=== PATIENT | male | born 1960 | race Caucasian/White ===

== ENCOUNTER 2018-07-22 22:09 | Emergency (ER) | payer MEDICARE, OTHER ==
[~2018-07-22] VITALS: Ht 180.3 cm; Wt 98.3 kg
--- NOTE | 2018-07-22 22:30 | NUR ---
PRECEPTOR NOTE: PT PRESENTS TO ED STATING HE CLIPPED SKIN ON RIGHT THIRD TOE ACCIDENTALLY WHILE CLIPPING TOES SEVERAL DAYS AGO AND HAS HAD PAIN AND SWELLING TO FOOT SINCE THAT TIME. LESION NOTED TO RIGHT 3RD TOE WITH SURROUNDING SKIN SLOUGHING NOTED. CMS INTACT TO BILATERAL LE WITH 3+ DORSALIS PEDIS PULSE BILATERALLY. EDEMA AND ERYTHEMA TO RIGHT LOWER LEG AND FOOT. BP AND SPO2 MONITORS IN PLACE.
[2018-07-22] MEDS ORDERED: INSU100V8 SQ (22:35)
[2018-07-22] MEDS ORDERED: GABA600T7 PO (22:37)
[2018-07-22] MEDS ORDERED: GEMF600T8 PO (22:37)
[2018-07-22] MEDS ORDERED: TRAZ150T62 PO (22:38)
[2018-07-22] MEDS ORDERED: ESCI20TA PO (22:38)
[2018-07-22] MEDS ORDERED: CYCL-259 PO (22:39)
[2018-07-22] MEDS ORDERED: CARV6.252 PO (22:40)
[2018-07-22] MEDS ORDERED: LISI-170 PO (22:40)
[2018-07-22] MEDS ORDERED: LOVA20TA2 PO (22:40)
[2018-07-22] MEDS ORDERED: HYDR-3307 PO (22:41)
[2018-07-22] MEDS ORDERED: [UNRECOGNIZED DRUG - OTHER] (22:42)
--- NOTE | 2018-07-22 23:00 | NUR ---
first contact with pt. pt c/o left leg swelling/pain/redness x a few days. right leg swelling x a few days as well. pt states that left middle toe pain and laceration as well. pt has hx of dm/gout. pt aox4. resps even and unlabored. edmd at bedside to assess at this time. bp/spo2 monitors in place. call light within reach.
[2018-07-22] MEDS ORDERED: ONDANSETRON 2MG/ML, 2ML ONE (23:11)
[2018-07-22] MEDS ORDERED: MORPHINE SULFATE 4 MG/ML, 1ML ONE (23:11)
[2018-07-22 23:22] LABS: BASOPHILS # (AUTO) 0.02 x10^3/uL (0-0.1); BASOPHILS % (AUTO) 0 % (0-1); EOSINOPHILS # (AUTO) 0.07 x10^3/uL (0-0.4); EOSINOPHILS % (AUTO) 1 % (1-7); LYMPHOCYTES % (AUTO) 19 % (22-44); MD NO; MEAN CORPUSCULAR HEMOGLOBIN 29.4 pg (27.5-34.5); MEAN CORPUSCULAR HGB CONC 34.1 g/dL (33.2-36.2); MEAN CORPUSCULAR VOLUME 86.1 fL (81-97); MEAN PLATELET VOLUME 7.6 fL (7.4-10.4); MONOCYTES % (AUTO) 10 % (2-9); NEUTROPHILS # (AUTO) 4.18 x10^3/uL (1.8-6.8); NEUTROPHILS % (AUTO) 70 % (42-75); PLATELET COUNT 217 x10^3/uL (130-400); RED BLOOD COUNT 4.67 x10^6/uL (4.38-5.82); RED CELL DISTRIBUTION WIDTH 13.6 % (9.4-14.8)
[2018-07-22 23:27] LABS: ALANINE AMINOTRANSFERASE 19 U/L (12-78); ALBUMIN 3.5 g/dL (3.4-5.0); ANION GAP 5 mmol/L (5-15); CALCIUM 8.6 mg/dL (8.5-10.1); CHLORIDE 111 mmol/L (98-107); CREATININE 0.94 mg/dL (0.7-1.3)
[2018-07-22 23:29] LABS: ALKALINE PHOSPHATASE 98 U/L (45-117); BILIRUBIN,TOTAL 0.3 mg/dL (0.2-1.0); TOTAL PROTEIN 7.4 g/dL (6.4-8.2)
[2018-07-22] MEDS ORDERED: ONDANSETRON 2MG/ML, 2ML IVPush ONE (23:30)
[2018-07-22] MEDS ORDERED: MORPHINE SULFATE 4 MG/ML, 1ML IVPush PRN (23:30)
--- NOTE | 2018-07-22 23:35 | NUR ---
PT MEDICATED PER EMAR. PT TOLERATED WELL. PT AOX4. RESPS EVEN AND UNLABORED.
--- NOTE | 2018-07-22 23:55 | NUR ---
PT REPORTS PAIN LEVEL DOWN FROM 10/10 TO 3/10 AT THIS TIME. PT A&O, RESPS EVEN AND UNLABORED. PT INFORMED BY OF PLAN TO ADMIT, PT VERBALIZES UNDERSTANDING. REQUESTING AMA. AWARE.
--- NOTE | 2018-07-23 00:04 | NUR ---
Bedside SBAR report received from RN, Arianna, and RNMally. Pt resting on gurney, remains on monitors, VSS.
--- NOTE | 2018-07-23 00:05 | NUR ---
Dr. Carolina and Ally SAMANIEGO at bedside to discuss ED findings and POC.
--- NOTE | 2018-07-23 00:05 | NUR ---
REPORT TO ROSEMARIE REAL.
[2018-07-23] MEDS ORDERED: CEFTRIAXONE PMX 1GM/50ML 50 ML ONE (00:16)
--- NOTE | 2018-07-23 00:25 | NUR ---
IV ABX started, pt states that he will AMA from ER this visit but states that he will "come back in a couple of days."
[2018-07-23] MEDS ORDERED: CEFTRIAXONE PMX 1GM/50ML 50 ML IV ONE (00:30)
[2018-07-23 00:34] VITALS: BP 157/84
--- NOTE | 2018-07-23 01:01 | NUR ---
Patient/Caregiver given discharge instructions and they have confirmed that they understand the instructions. Patient ambulatory with steady gait.
== END 2018-07-23 01:03 | disposition left against medical advice (07) ==
LOC: ED 23:35
DX: L03.115 Cellulitis of right lower limb (principal); M86.171 Other acute osteomyelitis, right ankle and foot; I10 Essential (primary) hypertension; E11.9 Type 2 diabetes mellitus without complications; F41.1 Generalized anxiety disorder; F32.9 Major depressive disorder, single episode, unspecified
CPT/HCPCS: 36415; 73660; 80053; 80307; 83605; 84145; 85025; 87040; 93971; 96365; 96375; 99284; J0696; J2405

== ENCOUNTER 2018-08-05 23:19 | Inpatient (IN) | payer MEDICARE, OTHER ==
[~2018-08-05] VITALS: Ht 180.3 cm; Wt 95.0 kg
[~2018-08-05 23:19] MED LIST: CARV6.252 PO; CYCL-259 PO; ESCI20TA PO; GABA600T7 PO; GEMF600T8 PO; HYDR-3307 PO; INSU100V8 SQ; LISI-170 PO; LOVA20TA2 PO; TRAZ150T62 PO; [UNRECOGNIZED DRUG - OTHER]
[2018-08-05] MEDS ORDERED: MORPHINE SULFATE 4 MG/ML, 1ML ONE (23:58)
[2018-08-06] MEDS ORDERED: SODIUM CHLORIDE FLUSH 10ML SYR IVF ONE
--- NOTE | 2018-08-06 00:09 | NUR ---
Pt reports increasing infection to right middle toes, obvious swelling/reddness to lower extremity. Hx diabetes, states decreased sensation to lower extremity.
--- NOTE | 2018-08-06 00:13 | NUR ---
Distal CSM's intact. Strong pedal pulse noted on assessment to affected extremity
--- NOTE | 2018-08-06 00:37 | NUR ---
Cultures drawn x2, pt reports decreased pain, "just feels like a little sharp shooting pain once in a while"
[2018-08-06 00:39] LABS: HCT (SEDRATE) 35.3 % (39.2-51.8)
[2018-08-06 00:39] LABS: BASOPHILS # (AUTO) 0.02 x10^3/uL (0-0.1); BASOPHILS % (AUTO) 0 % (0-1); EOSINOPHILS # (AUTO) 0.05 x10^3/uL (0-0.4); EOSINOPHILS % (AUTO) 1 % (1-7); LYMPHOCYTES # (AUTO) 0.79 x10^3/uL (1-3.4); LYMPHOCYTES % (AUTO) 9 % (22-44); MD NO; MEAN CORPUSCULAR HEMOGLOBIN 28.3 pg (27.5-34.5); MEAN CORPUSCULAR VOLUME 85.9 fL (81-97); MEAN PLATELET VOLUME 7.6 fL (7.4-10.4); MONOCYTES # (AUTO) 0.63 x10^3/uL (0.2-0.8); MONOCYTES % (AUTO) 7 % (2-9); NEUTROPHILS # (AUTO) 7.32 x10^3/uL (1.8-6.8); NEUTROPHILS % (AUTO) 83 % (42-75); PLATELET COUNT 331 x10^3/uL (130-400); RED BLOOD COUNT 4.35 x10^6/uL (4.38-5.82); RED CELL DISTRIBUTION WIDTH 13.6 % (9.4-14.8)
[2018-08-06 00:42] LABS: ALANINE AMINOTRANSFERASE 26 U/L (12-78); ANION GAP 7 mmol/L (5-15); CALCIUM 8.4 mg/dL (8.5-10.1); CHLORIDE 108 mmol/L (98-107); CREATININE 0.85 mg/dL (0.7-1.3)
[2018-08-06 00:48] LABS: ALKALINE PHOSPHATASE 101 U/L (45-117); BILIRUBIN,TOTAL 0.3 mg/dL (0.2-1.0); TOTAL PROTEIN 7.2 g/dL (6.4-8.2)
--- NOTE | 2018-08-06 01:32 | NUR ---
PT HAS [facility] [employer], [facility] AT [facility] DECLINES TRANSFER.
--- NOTE | 2018-08-06 01:52 | NUR ---
Report to socorro [place], pt ambulated to restroom without assistance, Pt ready for transport, will consult MD regarding ABX administration
--- NOTE | 2018-08-06 01:55 | NUR ---
Per ER , going to get MRI before abx administration
--- NOTE | 2018-08-06 01:55 | NUR ---
Pt no longer has room assignment. Will continue to hold in ED
--- NOTE | 2018-08-06 02:06 | NUR ---
Report to thomas [place]. Pt ready for transport.
[2018-08-06 02:48] VITALS: BP 143/83
[2018-08-06] MEDS ORDERED: GEMFIBROZIL 600 MG TABLET PO SCH (05:00)
[2018-08-06] MEDS ORDERED: hydrALAzine 20 MG/ML, 1ML IVPush PRN (05:00)
[2018-08-06] MEDS ORDERED: INSULIN GLARGINE 100 UNITS/ML, PEN SQ-INSULIN SCH (05:00)
[2018-08-06] MEDS ORDERED: KETOROLAC 30 MG/1 ML IV PRN (05:00)
[2018-08-06] MEDS ORDERED: ONDANSETRON 2MG/ML, 2ML IVPush PRN (05:00)
[2018-08-06] MEDS ORDERED: OXYcodone IR 5MG TABLET PO PRN (05:00)
[2018-08-06] MEDS ORDERED: ACETAMINOPHEN 500 MG TABLET PO PRN (05:00)
[2018-08-06] MEDS: SODIUM CHLORIDE 0.9% 1,000 ML IV SCH ×2 (05:03→15:25)
[2018-08-06] MEDS: PIPERACILLIN/TAZO/PMX 3.375GM 50 ML IV SCH ×4 (05:13→23:27)
[2018-08-06] MEDS: GABAPENTIN 300 MG CAPSULE PO SCH ×4 (06:47→20:11)
[2018-08-06] MEDS ORDERED: TRAZODONE 150MG TABLET PO SCH (09:00)
[2018-08-06] MEDS ORDERED: GADOBUTROL 10 MMOL/10 ML PFS ONE (09:03)
[2018-08-06 09:39] VITALS: BP 96/57
[2018-08-06] MEDS: LISINOPRIL 20 MG TABLET PO SCH (09:42)
[2018-08-06] MEDS: CARVEDILOL 6.25 MG TABLET PO SCH ×2 (09:42→20:10)
[2018-08-06] MEDS: CYCLOBENZAPRINE 10 MG TABLET PO SCH ×3 (09:42→20:10)
[2018-08-06] MEDS: ENOXAPARIN 40 MG/0.4 ML SQ SCH (09:42)
[2018-08-06] MEDS: INSULIN LISPRO 100 UNITS/ML, PEN SQ-INSULIN SCH ×2 (09:42→12:19)
[2018-08-06] MEDS ORDERED: INDO50CA5 PO (09:45)
[2018-08-06] MEDS: TEMPLATE NON-FORMULARY MED. (Escitalopram Oxalate** 20 MG) HOMEMEDPO SCH (11:02)
[2018-08-06 14:15] VITALS: BP 127/71
[2018-08-06] MEDS: D5%-0.9% NACL 1,000 ML IV SCH (15:33)
[2018-08-06 19:04] VITALS: BP 120/61
[2018-08-06] MEDS ORDERED: MIDAZOLAM 1 MG/ML, 2ML ONE (19:41)
[2018-08-06] MEDS ORDERED: FENTANYL PF 250 MCG/5ML ONE (19:41)
[2018-08-06] MEDS ORDERED: PROPOFOL 10 MG/ML, 20ML ONE (19:43)
[2018-08-06] MEDS ORDERED: PROMETHAZINE 12.5 MG SUPP PR PRN (20:00)
[2018-08-06] MEDS ORDERED: HYDROmorphone 2 MG/ML, 1ML IVPush PRN (20:00)
[2018-08-06] MEDS ORDERED: hydrALAzine 20 MG/ML, 1ML IV PRN (20:00)
[2018-08-06] MEDS ORDERED: MEPERIDINE/PF 25MG/0.5ML IVPush PRN (20:00)
[2018-08-06] MEDS ORDERED: OXYcodone 5 MG/5 ML ORAL.SOL UDC PO PRN (20:00)
[2018-08-06] MEDS ORDERED: LABETALOL 5MG/ML, 20ML IV PRN (20:00)
[2018-08-06] MEDS ORDERED: PROMETHAZINE 25 MG/ML, 1ML IV PRN (20:00)
[2018-08-06] MEDS ORDERED: ONDANSETRON ODT 8 MG PO PRN (20:00)
[2018-08-06] MEDS ORDERED: PROMETHAZINE 25 MG/ML, 1ML IM PRN ×2 (20:00)
[2018-08-06] MEDS ORDERED: FENTANYL PF 100 MCG/2ML IV PRN (20:00)
[2018-08-06] MEDS ORDERED: PROMETHAZINE 25 MG SUPP PR PRN (20:00)
[2018-08-06] MEDS ORDERED: ONDANSETRON 2MG/ML, 2ML IV PRN (20:00)
[2018-08-06] MEDS ORDERED: MORPHINE SULFATE 4 MG/ML, 1ML IVPush PRN ×2 (20:00)
[2018-08-06] MEDS: TRAZODONE 150MG TABLET PO SCH (20:10)
[2018-08-06] MEDS: LOVASTATIN 20 MG TABLET PO SCH (20:10)
[2018-08-06] MEDS ORDERED: OXYcodone 5 MG/5 ML ORAL.SOL UDC ONE (22:00)
[2018-08-07 01:32] VITALS: BP 147/75
[2018-08-07 05:27] LABS: BASOPHILS # (AUTO) 0.04 x10^3/uL (0-0.1); BASOPHILS % (AUTO) 0 % (0-1); EOSINOPHILS # (AUTO) 0.09 x10^3/uL (0-0.4); EOSINOPHILS % (AUTO) 1 % (1-7); LYMPHOCYTES % (AUTO) 14 % (22-44); MD NO; MEAN CORPUSCULAR HEMOGLOBIN 28.9 pg (27.5-34.5); MEAN CORPUSCULAR HGB CONC 33.7 g/dL (33.2-36.2); MEAN PLATELET VOLUME 7.2 fL (7.4-10.4); MONOCYTES # (AUTO) 0.62 x10^3/uL (0.2-0.8); MONOCYTES % (AUTO) 7 % (2-9); NEUTROPHILS # (AUTO) 6.62 x10^3/uL (1.8-6.8); NEUTROPHILS % (AUTO) 77 % (42-75); PLATELET COUNT 301 x10^3/uL (130-400); RED BLOOD COUNT 4.15 x10^6/uL (4.38-5.82); RED CELL DISTRIBUTION WIDTH 13.9 % (9.4-14.8)
[2018-08-07 05:37] LABS: ANION GAP 5 mmol/L (5-15); CALCIUM 7.8 mg/dL (8.5-10.1); CHLORIDE 111 mmol/L (98-107); CREATININE 0.93 mg/dL (0.7-1.3)
[2018-08-07] MEDS: PIPERACILLIN/TAZO/PMX 3.375GM 50 ML IV SCH ×4 (06:08→22:31)
[2018-08-07] MEDS: GABAPENTIN 300 MG CAPSULE PO SCH ×4 (06:08→22:19)
[2018-08-07] MEDS: SODIUM CHLORIDE 0.9% 1,000 ML IV SCH ×2 (06:13→16:31)
[2018-08-07] MEDS: D5%-0.9% NACL 1,000 ML IV SCH ×2 (07:05→09:23)
[2018-08-07] MEDS ORDERED: DEXTROSE 50%, 50ML SYRINGE IVPush PRN (07:30)
[2018-08-07] MEDS ORDERED: GLUCAGON 1 MG IM PRN (07:30)
[2018-08-07] MEDS ORDERED: DEXTROSE 4 GM TAB.CHEW PO PRN (07:30)
[2018-08-07 08:03] VITALS: BP 157/83
[2018-08-07] MEDS: SODIUM CHLORIDE FLUSH 10ML SYR IVF SCH ×2 (08:18→22:19)
[2018-08-07] MEDS: LISINOPRIL 20 MG TABLET PO SCH (08:22)
[2018-08-07] MEDS: INSULIN LISPRO 100 UNITS/ML, PEN SQ-INSULIN SCH ×3 (08:23→16:30)
[2018-08-07] MEDS: CYCLOBENZAPRINE 10 MG TABLET PO SCH ×3 (08:23→22:19)
[2018-08-07] MEDS: ENOXAPARIN 40 MG/0.4 ML SQ SCH (08:23)
[2018-08-07] MEDS: TEMPLATE NON-FORMULARY MED. (Escitalopram Oxalate** 20 MG) HOMEMEDPO SCH (08:23)
[2018-08-07] MEDS: CARVEDILOL 6.25 MG TABLET PO SCH ×2 (08:23→22:19)
[2018-08-07 14:16] VITALS: BP 121/72
[2018-08-07 20:00] VITALS: BP 152/76
[2018-08-07] MEDS: LOVASTATIN 20 MG TABLET PO SCH (22:19)
[2018-08-07] MEDS: TRAZODONE 150MG TABLET PO SCH (22:19)
[2018-08-07] MEDS: INSULIN GLARGINE 100 UNITS/ML, PEN SQ-INSULIN SCH (22:20)
[2018-08-08 00:47] VITALS: BP 153/73
[2018-08-08 05:25] LABS: ALBUMIN 2.5 g/dL (3.4-5.0); ANION GAP 3 mmol/L (5-15); CALCIUM 7.9 mg/dL (8.5-10.1); CHLORIDE 112 mmol/L (98-107)
[2018-08-08] MEDS: PIPERACILLIN/TAZO/PMX 3.375GM 50 ML IV SCH ×4 (05:40→23:27)
[2018-08-08] MEDS: GABAPENTIN 300 MG CAPSULE PO SCH ×4 (05:40→21:27)
[2018-08-08] MEDS ORDERED: SODIUM PHOSPHATE 20 MMOL in SODIUM CHLORIDE 0.9% 500 ML IV ONE (08:30)
[2018-08-08] MEDS: CARVEDILOL 6.25 MG TABLET PO SCH ×2 (08:30→21:26)
[2018-08-08] MEDS: LISINOPRIL 20 MG TABLET PO SCH (08:30)
[2018-08-08] MEDS: CYCLOBENZAPRINE 10 MG TABLET PO SCH ×3 (08:30→21:26)
[2018-08-08] MEDS: ENOXAPARIN 40 MG/0.4 ML SQ SCH (08:31)
[2018-08-08] MEDS: SODIUM CHLORIDE FLUSH 10ML SYR IVF SCH ×2 (08:32→21:27)
[2018-08-08] MEDS: TEMPLATE NON-FORMULARY MED. (Escitalopram Oxalate** 20 MG) HOMEMEDPO SCH (08:32)
[2018-08-08 09:20] VITALS: BP 148/69
[2018-08-08 13:20] VITALS: BP 135/65
[2018-08-08 20:05] VITALS: BP 165/83
[2018-08-08] MEDS: TRAZODONE 150MG TABLET PO SCH (21:26)
[2018-08-08] MEDS: LOVASTATIN 20 MG TABLET PO SCH (21:26)
[2018-08-08] MEDS: INSULIN GLARGINE 100 UNITS/ML, PEN SQ-INSULIN SCH (21:49)
[2018-08-08 22:19] LABS: CLOSTRIDIUM DIFFICILE ANTIGEN NEGATIVE; CLOSTRIDIUM DIFFICILE TOXIN NEGATIVE (Negative)
[2018-08-09 02:44] VITALS: BP 164/84
[2018-08-09] MEDS: PIPERACILLIN/TAZO/PMX 3.375GM 50 ML IV SCH ×4 (05:17→23:08)
[2018-08-09] MEDS: GABAPENTIN 300 MG CAPSULE PO SCH ×4 (05:17→22:14)
[2018-08-09 07:27] VITALS: BP 163/88
[2018-08-09] MEDS ORDERED: VANCOMYCIN PER PHARMACY MC PRN (08:30)
[2018-08-09] MEDS ORDERED: OXYcodone IR 5MG TABLET PO PRN (09:00)
[2018-08-09] MEDS: TEMPLATE NON-FORMULARY MED. (Escitalopram Oxalate** 20 MG) HOMEMEDPO SCH (09:17)
[2018-08-09] MEDS: TRAZODONE 150MG TABLET PO SCH (09:18)
[2018-08-09] MEDS: LACTOBACILLUS CHEW TABLET PO SCH ×3 (09:18→22:14)
[2018-08-09] MEDS: HEPARIN 5,000 UNITS/ML, 1ML SQ SCH ×2 (09:18→16:31)
[2018-08-09] MEDS: CARVEDILOL 6.25 MG TABLET PO SCH ×2 (09:18→22:15)
[2018-08-09] MEDS: CYCLOBENZAPRINE 10 MG TABLET PO SCH ×3 (09:18→22:14)
[2018-08-09] MEDS: LISINOPRIL 20 MG TABLET PO SCH (09:19)
[2018-08-09] MEDS: SODIUM CHLORIDE FLUSH 10ML SYR IVF SCH ×2 (09:19→21:00)
[2018-08-09] MEDS: ISOSORBIDE DINITRATE 10 MG TABLET PO SCH ×3 (09:19→22:15)
[2018-08-09] MEDS ORDERED: PHARMACOKINETIC MONITORING MC PRN (09:30)
[2018-08-09] MEDS ORDERED: PHARMACOKINETIC CONSULTATION MC ONE (09:30)
[2018-08-09] MEDS: VANCOMYCIN 1,900 MG in SODIUM CHLORIDE 0.9% 250 ML IV SCH (09:30)
[2018-08-09] MEDS ORDERED: ACETAMINOPHEN 500 MG TABLET PO PRN (11:00)
[2018-08-09] MEDS: INSULIN LISPRO 100 UNITS/ML, PEN SQ-INSULIN SCH ×3 (11:32→22:16)
[2018-08-09 12:23] VITALS: BP 133/72
[2018-08-09 21:25] VITALS: BP 148/80
[2018-08-09] MEDS: LOVASTATIN 20 MG TABLET PO SCH (22:14)
[2018-08-09] MEDS: INSULIN GLARGINE 100 UNITS/ML, PEN SQ-INSULIN SCH (22:16)
[2018-08-10] MEDS: HEPARIN 5,000 UNITS/ML, 1ML SQ SCH ×3 (00:35→17:07)
[2018-08-10 03:08] VITALS: BP 130/72
[2018-08-10] MEDS: VANCOMYCIN 1,900 MG in SODIUM CHLORIDE 0.9% 250 ML IV SCH (03:44)
[2018-08-10] MEDS: PIPERACILLIN/TAZO/PMX 3.375GM 50 ML IV SCH ×4 (05:20→23:38)
[2018-08-10] MEDS: GABAPENTIN 300 MG CAPSULE PO SCH ×4 (05:21→21:50)
[2018-08-10] MEDS: ASPIRIN 81 MG TABLET EC PO SCH (05:21)
[2018-08-10 06:03] LABS: HEMOGLOBIN A1C 9.2 % (4.2-6.3)
[2018-08-10 08:08] VITALS: BP 119/53
[2018-08-10] MEDS: TEMPLATE NON-FORMULARY MED. (Escitalopram Oxalate** 20 MG) HOMEMEDPO SCH (08:10)
[2018-08-10] MEDS: INSULIN LISPRO 100 UNITS/ML, PEN SQ-INSULIN SCH ×4 (08:10→21:52)
[2018-08-10] MEDS: LACTOBACILLUS CHEW TABLET PO SCH ×3 (08:11→21:49)
[2018-08-10] MEDS: ISOSORBIDE DINITRATE 10 MG TABLET PO SCH ×3 (08:11→21:49)
[2018-08-10] MEDS: CARVEDILOL 6.25 MG TABLET PO SCH ×2 (08:11→21:50)
[2018-08-10] MEDS: SODIUM CHLORIDE FLUSH 10ML SYR IVF SCH ×2 (08:11→21:51)
[2018-08-10] MEDS: LISINOPRIL 20 MG TABLET PO SCH (08:11)
[2018-08-10] MEDS: TRAZODONE 150MG TABLET PO SCH (08:14)
[2018-08-10] MEDS: CYCLOBENZAPRINE 10 MG TABLET PO SCH ×3 (08:14→21:50)
[2018-08-10 13:23] VITALS: BP 122/60
[2018-08-10 19:34] VITALS: BP 95/58
[2018-08-10] MEDS: LOVASTATIN 20 MG TABLET PO SCH (21:48)
[2018-08-10] MEDS: INSULIN GLARGINE 100 UNITS/ML, PEN SQ-INSULIN SCH (21:52)
[2018-08-10 21:54] VITALS: BP 152/77
[2018-08-11] MEDS: HEPARIN 5,000 UNITS/ML, 1ML SQ SCH ×3 (00:30→16:47)
[2018-08-11 01:31] VITALS: BP 143/68
[2018-08-11] MEDS: PIPERACILLIN/TAZO/PMX 3.375GM 50 ML IV SCH (05:16)
[2018-08-11] MEDS: GABAPENTIN 300 MG CAPSULE PO SCH ×4 (05:16→21:40)
[2018-08-11] MEDS: ASPIRIN 81 MG TABLET EC PO SCH (05:16)
[2018-08-11 06:33] VITALS: BP 124/60
[2018-08-11] MEDS: INSULIN LISPRO 100 UNITS/ML, PEN SQ-INSULIN SCH ×4 (07:00→21:54)
[2018-08-11] MEDS: SODIUM CHLORIDE FLUSH 10ML SYR IVF SCH ×2 (09:00→21:57)
[2018-08-11] MEDS: TEMPLATE NON-FORMULARY MED. (Escitalopram Oxalate** 20 MG) HOMEMEDPO SCH (09:00)
[2018-08-11] MEDS: ISOSORBIDE DINITRATE 10 MG TABLET PO SCH ×3 (09:00→21:41)
[2018-08-11] MEDS: LISINOPRIL 20 MG TABLET PO SCH (09:16)
[2018-08-11] MEDS: CYCLOBENZAPRINE 10 MG TABLET PO SCH ×3 (09:17→21:41)
[2018-08-11] MEDS: CARVEDILOL 6.25 MG TABLET PO SCH ×2 (09:17→21:41)
[2018-08-11] MEDS: LACTOBACILLUS CHEW TABLET PO SCH ×3 (09:18→21:40)
[2018-08-11] MEDS: DIPHENOXYLATE/ATROPINE TABLET PO PRN ×2 (10:49→21:45)
[2018-08-11] MEDS ORDERED: DIPH1TAB6 PO (11:20)
[2018-08-11] MEDS ORDERED: HEPA50002 SQ (11:20)
[2018-08-11] MEDS ORDERED: ACID1TAB7 PO (11:20)
[2018-08-11] MEDS ORDERED: ACET500T71 PO (11:20)
[2018-08-11] MEDS ORDERED: ASPI81TA45 PO (11:20)
[2018-08-11] MEDS ORDERED: INSU100I13 SQ-INSULIN (11:20)
[2018-08-11] MEDS ORDERED: ISOS10TA2 PO (11:20)
[2018-08-11] MEDS ORDERED: HYDR-3341 PO (11:20)
[2018-08-11] MEDS ORDERED: INSU100I11 SQ-INSULIN (11:20)
[2018-08-11] MEDS: PIPERACILLIN/TAZO/PMX 4.5GM 100 ML IV SCH ×2 (13:30→21:41)
[2018-08-11 13:54] VITALS: BP_SYST 103; BP_SYST 111; BP_DIAS 50; BP_DIAS 66
[2018-08-11 19:32] VITALS: BP 131/66
[2018-08-11] MEDS: LOVASTATIN 20 MG TABLET PO SCH (21:40)
[2018-08-11] MEDS: INSULIN GLARGINE 100 UNITS/ML, PEN SQ-INSULIN SCH (21:54)
[2018-08-12] MEDS: HEPARIN 5,000 UNITS/ML, 1ML SQ SCH ×3 (00:07→16:00)
[2018-08-12] MEDS: TRAZODONE 150MG TABLET PO SCH ×2 (00:09→08:22)
[2018-08-12 03:03] VITALS: BP 118/62
[2018-08-12] MEDS: ASPIRIN 81 MG TABLET EC PO SCH (05:17)
[2018-08-12] MEDS: PIPERACILLIN/TAZO/PMX 4.5GM 100 ML IV SCH (05:17)
[2018-08-12] MEDS: GABAPENTIN 300 MG CAPSULE PO SCH ×4 (05:23→20:54)
[2018-08-12 06:32] VITALS: BP 146/72
[2018-08-12] MEDS: INSULIN LISPRO 100 UNITS/ML, PEN SQ-INSULIN SCH ×4 (08:21→21:01)
[2018-08-12] MEDS: CYCLOBENZAPRINE 10 MG TABLET PO SCH ×3 (08:22→20:54)
[2018-08-12] MEDS: CARVEDILOL 6.25 MG TABLET PO SCH ×2 (08:23→20:54)
[2018-08-12] MEDS: LACTOBACILLUS CHEW TABLET PO SCH ×3 (08:23→20:54)
[2018-08-12] MEDS: TEMPLATE NON-FORMULARY MED. (Escitalopram Oxalate** 20 MG) HOMEMEDPO SCH (08:24)
[2018-08-12] MEDS: SODIUM CHLORIDE FLUSH 10ML SYR IVF SCH ×2 (08:24→20:56)
[2018-08-12] MEDS: ISOSORBIDE DINITRATE 10 MG TABLET PO SCH ×3 (08:26→20:54)
[2018-08-12] MEDS: LISINOPRIL 20 MG TABLET PO SCH (08:27)
[2018-08-12 12:34] VITALS: BP 100/61
[2018-08-12] MEDS: AMPICILLIN/SULBACTAM 3 GM in SODIUM CHLORIDE 0.9% 100 ML IV SCH ×2 (12:52→20:19)
[2018-08-12 19:15] VITALS: BP 152/71
[2018-08-12] MEDS: LOVASTATIN 20 MG TABLET PO SCH (20:54)
[2018-08-12] MEDS ORDERED: INSULIN GLARGINE 100 UNITS/ML, PEN SQ-INSULIN SCH (21:00)
[2018-08-13 00:58] VITALS: BP 141/68
[2018-08-13] MEDS: HEPARIN 5,000 UNITS/ML, 1ML SQ SCH ×3 (01:08→16:20)
[2018-08-13] MEDS: AMPICILLIN/SULBACTAM 3 GM in SODIUM CHLORIDE 0.9% 100 ML IV SCH ×3 (02:01→15:12)
[2018-08-13] MEDS: ASPIRIN 81 MG TABLET EC PO SCH (06:19)
[2018-08-13] MEDS: GABAPENTIN 300 MG CAPSULE PO SCH ×3 (06:19→16:19)
[2018-08-13 07:04] VITALS: BP 149/85
[2018-08-13] MEDS: ISOSORBIDE DINITRATE 10 MG TABLET PO SCH ×2 (08:07→16:00)
[2018-08-13] MEDS: CARVEDILOL 6.25 MG TABLET PO SCH (08:08)
[2018-08-13] MEDS: CYCLOBENZAPRINE 10 MG TABLET PO SCH ×2 (08:08→16:20)
[2018-08-13] MEDS: LISINOPRIL 20 MG TABLET PO SCH (08:08)
[2018-08-13] MEDS: LACTOBACILLUS CHEW TABLET PO SCH ×2 (08:08→16:20)
[2018-08-13] MEDS: INSULIN LISPRO 100 UNITS/ML, PEN SQ-INSULIN SCH ×3 (08:09→16:22)
[2018-08-13] MEDS: TEMPLATE NON-FORMULARY MED. (Escitalopram Oxalate** 20 MG) HOMEMEDPO SCH (08:10)
[2018-08-13] MEDS: SODIUM CHLORIDE FLUSH 10ML SYR IVF SCH (08:10)
[2018-08-13 13:40] VITALS: BP 113/87
[2018-08-13 16:35] VITALS: BP 118/72
[2018-08-13] MEDS ORDERED: INSULIN GLARGINE 100 UNITS/ML, PEN SQ-INSULIN SCH (21:00)
[2018-08-13] MEDS ORDERED: TRAZODONE 150MG TABLET PO SCH (21:00)
== END 2018-08-13 17:25 | DRG 853 ==
LOC: ED 23:48 → 4NOR 08-06 01:21
PROVIDERS: ADMIT Hospitalist; ATTEND Hospitalist
PROC: 0Y6T0Z0 Detachment at Right 3rd Toe, Complete, Open Approach (ICD-10-PCS; principal; 2018-08-06 20:30)
PROC: 02HV33Z Insertion of Infusion Device into Superior Vena Cava, Percutaneous Approach (ICD-10-PCS; 2018-08-11)
PROC: B5181ZA Fluoroscopy of Superior Vena Cava using Low Osmolar Contrast, Guidance (ICD-10-PCS; 2018-08-11)
PROC: B548ZZA Ultrasonography of Superior Vena Cava, Guidance (ICD-10-PCS; 2018-08-11)
DX: A41.9 Sepsis, unspecified organism (principal); E43 Unspecified severe protein-calorie malnutrition; L02.611 Cutaneous abscess of right foot; M86.171 Other acute osteomyelitis, right ankle and foot; L03.115 Cellulitis of right lower limb; E11.42 Type 2 diabetes mellitus with diabetic polyneuropathy; E11.65 Type 2 diabetes mellitus with hyperglycemia; E11.69 Type 2 diabetes mellitus with other specified complication; E66.9 Obesity, unspecified; Z68.29 Body mass index [BMI] 29.0-29.9, adult; E78.5 Hyperlipidemia, unspecified; F17.200 Nicotine dependence, unspecified, uncomplicated; F32.9 Major depressive disorder, single episode, unspecified; F41.1 Generalized anxiety disorder; G89.4 Chronic pain syndrome; I10 Essential (primary) hypertension; L03.031 Cellulitis of right toe; Z79.4 Long term (current) use of insulin; Z83.3 Family history of diabetes mellitus; Z91.11 Patient's noncompliance with dietary regimen
CPT/HCPCS: 36415; 36573; 71045; 80048; 80053; 82040; 82962; 83036; 83605; 83735; 84100; 85025; 85651; 86140; 86141; 87040; 87070; 87075; 87077; 87147; 87176; 87186; 87205; 87324; 93005; 96374; A9585; G0378; J0295; J1644; J1650; J2250; J2543; J2704; J3010; J3370; J7042; C1751; J1815; J7030; J7040; J7050

== ENCOUNTER 2018-09-03 12:03 | Inpatient (IN) | payer MEDICARE ==
[~2018-09-03] VITALS: Ht 180.3 cm; Wt 86.0 kg
[~2018-09-03 12:03] MED LIST changes: +ACET500T71 PO; +ACID1TAB7 PO; +ASPI81TA45 PO; +DIPH1TAB6 PO; +HEPA50002 SQ; +HYDR-3341 PO; +INDO50CA5 PO; +INSU100I11 SQ-INSULIN; +INSU100I13 SQ-INSULIN; +ISOS10TA2 PO
--- NOTE | 2018-09-03 12:44 | NUR ---
First contact with patient: blood glucose 281mg/dL, Dr. Sparks notified.
[2018-09-03 13:13] LABS: BASOPHILS # (AUTO) 0.02 x10^3/uL (0-0.1); BASOPHILS % (AUTO) 0 % (0-1); EOSINOPHILS # (AUTO) 0.07 x10^3/uL (0-0.4); EOSINOPHILS % (AUTO) 2 % (1-7); LYMPHOCYTES # (AUTO) 0.87 x10^3/uL (1-3.4); LYMPHOCYTES % (AUTO) 19 % (22-44); MD NO; MEAN CORPUSCULAR HEMOGLOBIN 29.4 pg (27.5-34.5); MEAN CORPUSCULAR HGB CONC 34.2 g/dL (33.2-36.2); MEAN PLATELET VOLUME 8.4 fL (7.4-10.4); MONOCYTES # (AUTO) 0.27 x10^3/uL (0.2-0.8); MONOCYTES % (AUTO) 6 % (2-9); NEUTROPHILS # (AUTO) 3.35 x10^3/uL (1.8-6.8); NEUTROPHILS % (AUTO) 73 % (42-75); PLATELET COUNT 180 x10^3/uL (130-400); RED BLOOD COUNT 4.76 x10^6/uL (4.38-5.82); RED CELL DISTRIBUTION WIDTH 14.6 % (9.4-14.8)
[2018-09-03 13:23] LABS: ALANINE AMINOTRANSFERASE 25 U/L (12-78); ALBUMIN 3.8 g/dL (3.4-5.0); ANION GAP 5 mmol/L (5-15); CALCIUM 8.8 mg/dL (8.5-10.1); CHLORIDE 110 mmol/L (98-107); CREATININE 1.06 mg/dL (0.7-1.3)
[2018-09-03 13:28] LABS: ALKALINE PHOSPHATASE 99 U/L (45-117); BILIRUBIN,TOTAL 0.6 mg/dL (0.2-1.0); TOTAL PROTEIN 8.2 g/dL (6.4-8.2); TROPONIN I < 0.015 ng/mL (0.000-0.045)
[2018-09-03 14:03] LABS: MICROSCOPIC NOT IND
[2018-09-03 14:06] LABS: CULTURE INDICATED? NO
[2018-09-03] MEDS ORDERED: AMPICILLIN/SULBACTAM 3 GM in SODIUM CHLORIDE 0.9% 100 ML IV ONE (16:30)
--- NOTE | 2018-09-03 17:11 | NUR ---
Report called to ROSEMARIE Mariscal
[2018-09-03] MEDS ORDERED: LABETALOL 5 MG/ML SYRINGE IVPush PRN (17:30)
[2018-09-03] MEDS ORDERED: ONDANSETRON 2MG/ML, 2ML IVPush PRN (17:30)
[2018-09-03 17:39] VITALS: BP 138/77
[2018-09-03] MEDS ORDERED: DEXTROSE 4 GM TAB.CHEW PO PRN (18:00)
[2018-09-03] MEDS ORDERED: DEXTROSE 50%, 50ML SYRINGE IVPush PRN (18:00)
[2018-09-03] MEDS ORDERED: GLUCAGON 1 MG IM PRN (18:00)
[2018-09-03] MEDS: HEPARIN 5,000 UNITS/ML, 1ML SQ SCH (18:29)
[2018-09-03] MEDS ORDERED: SODIUM POLYSTYRENE SULFONATE ORAL SUSP PO ONE (18:30)
[2018-09-03 19:11] VITALS: BP_SYST 148; BP_SYST 153; BP_DIAS 76; BP_DIAS 81
[2018-09-03 19:12] VITALS: BP 152/77
[2018-09-03] MEDS ORDERED: INSULIN GLARGINE 100 UNITS/ML, PEN SQ-INSULIN SCH (21:00)
[2018-09-03] MEDS: INSULIN LISPRO 100 UNITS/ML, PEN SQ-INSULIN SCH (21:19)
[2018-09-03] MEDS: CARVEDILOL 6.25 MG TABLET PO SCH (21:19)
[2018-09-03] MEDS: CYCLOBENZAPRINE 10 MG TABLET PO SCH (21:19)
[2018-09-03] MEDS: LOVASTATIN 20 MG TABLET PO SCH (21:19)
[2018-09-03] MEDS: ISOSORBIDE DINITRATE 10 MG TABLET PO SCH (21:19)
[2018-09-03] MEDS: GABAPENTIN 300 MG CAPSULE PO SCH (21:19)
[2018-09-03 21:42] LABS: ANION GAP 2 mmol/L (5-15); CALCIUM 8.8 mg/dL (8.5-10.1); CHLORIDE 112 mmol/L (98-107); CREATININE 0.85 mg/dL (0.7-1.3)
[2018-09-03] MEDS: SODIUM CHLORIDE FLUSH 10ML SYR IVF SCH (22:03)
[2018-09-03] MEDS: AMPICILLIN/SULBACTAM 1,500 MG in SODIUM CHLORIDE 0.9% 50 ML IV SCH (22:05)
[2018-09-03] MEDS: ACETAMINOPHEN 325 MG TABLET PO PRN (23:27)
[2018-09-04 00:08] VITALS: BP 134/71
[2018-09-04] MEDS: AMPICILLIN/SULBACTAM 1,500 MG in SODIUM CHLORIDE 0.9% 50 ML IV SCH ×4 (03:30→22:50)
[2018-09-04] MEDS: HEPARIN 5,000 UNITS/ML, 1ML SQ SCH ×3 (03:30→17:35)
[2018-09-04] MEDS: ASPIRIN 81 MG TABLET EC PO SCH (05:22)
[2018-09-04] MEDS: GABAPENTIN 300 MG CAPSULE PO SCH ×4 (05:22→22:50)
[2018-09-04 05:41] LABS: BASOPHILS # (AUTO) 0.03 x10^3/uL (0-0.1); BASOPHILS % (AUTO) 1 % (0-1); EOSINOPHILS % (AUTO) 2 % (1-7); LYMPHOCYTES # (AUTO) 1.33 x10^3/uL (1-3.4); LYMPHOCYTES % (AUTO) 27 % (22-44); MD NO; MEAN CORPUSCULAR HEMOGLOBIN 29.1 pg (27.5-34.5); MEAN CORPUSCULAR HGB CONC 34.2 g/dL (33.2-36.2); MEAN CORPUSCULAR VOLUME 85.3 fL (81-97); MONOCYTES # (AUTO) 0.45 x10^3/uL (0.2-0.8); MONOCYTES % (AUTO) 9 % (2-9); NEUTROPHILS # (AUTO) 2.95 x10^3/uL (1.8-6.8); NEUTROPHILS % (AUTO) 61 % (42-75); PLATELET COUNT 172 x10^3/uL (130-400); RED BLOOD COUNT 4.32 x10^6/uL (4.38-5.82); RED CELL DISTRIBUTION WIDTH 14.5 % (9.4-14.8)
[2018-09-04 05:43] LABS: CHLORIDE 112 mmol/L (98-107)
[2018-09-04 05:53] LABS: ALANINE AMINOTRANSFERASE 20 U/L (12-78); ALBUMIN 3.3 g/dL (3.4-5.0); ALKALINE PHOSPHATASE 87 U/L (45-117); ANION GAP 4 mmol/L (5-15); BILIRUBIN,TOTAL 0.8 mg/dL (0.2-1.0); CALCIUM 8.8 mg/dL (8.5-10.1); CREATININE 0.76 mg/dL (0.7-1.3); TOTAL PROTEIN 7.2 g/dL (6.4-8.2)
[2018-09-04] MEDS: INSULIN LISPRO 100 UNITS/ML, PEN SQ-INSULIN SCH ×4 (07:39→21:00)
[2018-09-04 08:59] VITALS: BP 126/64
[2018-09-04] MEDS: ESCITALOPRAM 10MG TABLET PO SCH (09:04)
[2018-09-04] MEDS: ISOSORBIDE DINITRATE 10 MG TABLET PO SCH ×3 (09:04→22:51)
[2018-09-04] MEDS: CARVEDILOL 6.25 MG TABLET PO SCH ×2 (09:04→22:51)
[2018-09-04] MEDS: CYCLOBENZAPRINE 10 MG TABLET PO SCH ×3 (09:04→22:51)
[2018-09-04] MEDS: SODIUM CHLORIDE FLUSH 10ML SYR IVF SCH ×2 (09:04→22:52)
[2018-09-04] MEDS: LISINOPRIL 20 MG TABLET PO SCH (09:04)
[2018-09-04 16:09] VITALS: BP 137/63
[2018-09-04 19:42] VITALS: BP 128/66
[2018-09-04 19:43] VITALS: BP_SYST 127; BP_SYST 87; BP_DIAS 54; BP_DIAS 70
[2018-09-04] MEDS: LOVASTATIN 20 MG TABLET PO SCH (22:51)
[2018-09-04] MEDS: INSULIN GLARGINE 100 UNITS/ML, PEN SQ-INSULIN SCH (22:53)
[2018-09-04 23:00] VITALS: BP 147/76
[2018-09-05] VITALS (8 sets, daily range): BP systolic 88–136; BP diastolic 52–72
[2018-09-05] MEDS: AMPICILLIN/SULBACTAM 1,500 MG in SODIUM CHLORIDE 0.9% 50 ML IV SCH ×4 (04:51→23:16)
[2018-09-05] MEDS: HEPARIN 5,000 UNITS/ML, 1ML SQ SCH ×3 (04:52→21:43)
[2018-09-05] MEDS: ASPIRIN 81 MG TABLET EC PO SCH (04:52)
[2018-09-05] MEDS: GABAPENTIN 300 MG CAPSULE PO SCH ×4 (04:52→21:43)
[2018-09-05] MEDS: INSULIN LISPRO 100 UNITS/ML, PEN SQ-INSULIN SCH ×4 (07:00→21:44)
[2018-09-05] MEDS: SODIUM CHLORIDE FLUSH 10ML SYR IVF SCH ×2 (09:00→21:45)
[2018-09-05] MEDS: ISOSORBIDE DINITRATE 10 MG TABLET PO SCH ×4 (09:00→21:43)
[2018-09-05] MEDS: CYCLOBENZAPRINE 10 MG TABLET PO SCH ×3 (09:27→21:42)
[2018-09-05] MEDS: ESCITALOPRAM 10MG TABLET PO SCH (09:27)
[2018-09-05] MEDS: LISINOPRIL 20 MG TABLET PO SCH (09:27)
[2018-09-05] MEDS: CARVEDILOL 6.25 MG TABLET PO SCH ×2 (09:27→21:43)
[2018-09-05] MEDS: OMEPRAZOLE 20 MG CAPSULE.DR PO SCH (17:01)
[2018-09-05] MEDS: LOVASTATIN 20 MG TABLET PO SCH (21:43)
[2018-09-05] MEDS: INSULIN GLARGINE 100 UNITS/ML, PEN SQ-INSULIN SCH (21:45)
[2018-09-06 01:37] VITALS: BP 134/72
[2018-09-06] MEDS: GABAPENTIN 300 MG CAPSULE PO SCH ×4 (04:41→21:05)
[2018-09-06] MEDS: AMPICILLIN/SULBACTAM 1,500 MG in SODIUM CHLORIDE 0.9% 50 ML IV SCH ×4 (04:41→23:15)
[2018-09-06] MEDS: ASPIRIN 81 MG TABLET EC PO SCH (04:42)
[2018-09-06] MEDS: HEPARIN 5,000 UNITS/ML, 1ML SQ SCH ×3 (04:42→21:05)
[2018-09-06] MEDS: OMEPRAZOLE 20 MG CAPSULE.DR PO SCH ×2 (05:07→16:00)
[2018-09-06 05:40] LABS: ALANINE AMINOTRANSFERASE 21 U/L (12-78); ALBUMIN 3.3 g/dL (3.4-5.0); ANION GAP 5 mmol/L (5-15); CALCIUM 9.1 mg/dL (8.5-10.1); CHLORIDE 108 mmol/L (98-107)
[2018-09-06 05:42] LABS: ALKALINE PHOSPHATASE 96 U/L (45-117); BILIRUBIN,TOTAL 0.3 mg/dL (0.2-1.0); TOTAL PROTEIN 7.6 g/dL (6.4-8.2)
[2018-09-06] MEDS: INSULIN LISPRO 100 UNITS/ML, PEN SQ-INSULIN SCH ×4 (07:00→21:07)
[2018-09-06 08:14] VITALS: BP 117/52
[2018-09-06] MEDS: LISINOPRIL 20 MG TABLET PO SCH (09:00)
[2018-09-06] MEDS: SODIUM CHLORIDE FLUSH 10ML SYR IVF SCH ×2 (09:44→21:04)
[2018-09-06] MEDS: ISOSORBIDE DINITRATE 10 MG TABLET PO SCH ×3 (09:44→21:05)
[2018-09-06] MEDS: CYCLOBENZAPRINE 10 MG TABLET PO SCH ×3 (09:44→21:06)
[2018-09-06] MEDS: ESCITALOPRAM 10MG TABLET PO SCH (09:44)
[2018-09-06] MEDS: CARVEDILOL 6.25 MG TABLET PO SCH ×2 (09:44→21:06)
[2018-09-06 12:35] VITALS: BP 102/61
[2018-09-06] MEDS ORDERED: INSU100I13 SQ-INSULIN (15:59)
[2018-09-06] MEDS ORDERED: OMEP-110 PO (15:59)
[2018-09-06 19:55] VITALS: BP 120/56
[2018-09-06] MEDS: LOVASTATIN 20 MG TABLET PO SCH (21:05)
[2018-09-06] MEDS: INSULIN GLARGINE 100 UNITS/ML, PEN SQ-INSULIN SCH (21:06)
[2018-09-06] MEDS: TRAZODONE 50MG TABLET PO PRN (23:15)
[2018-09-07 01:29] VITALS: BP 127/66
[2018-09-07] MEDS: GABAPENTIN 300 MG CAPSULE PO SCH ×4 (05:03→21:00)
[2018-09-07] MEDS: ASPIRIN 81 MG TABLET EC PO SCH (05:03)
[2018-09-07] MEDS: AMPICILLIN/SULBACTAM 1,500 MG in SODIUM CHLORIDE 0.9% 50 ML IV SCH ×4 (05:03→23:14)
[2018-09-07] MEDS: ACETAMINOPHEN 325 MG TABLET PO PRN (05:03)
[2018-09-07] MEDS: OMEPRAZOLE 20 MG CAPSULE.DR PO SCH ×2 (05:03→17:04)
[2018-09-07] MEDS: HEPARIN 5,000 UNITS/ML, 1ML SQ SCH ×3 (05:04→20:59)
[2018-09-07 07:15] VITALS: BP 132/69
[2018-09-07] MEDS: CARVEDILOL 6.25 MG TABLET PO SCH ×2 (08:56→21:00)
[2018-09-07] MEDS: ESCITALOPRAM 10MG TABLET PO SCH (08:56)
[2018-09-07] MEDS: SODIUM CHLORIDE FLUSH 10ML SYR IVF SCH ×2 (08:57→21:00)
[2018-09-07] MEDS: CYCLOBENZAPRINE 10 MG TABLET PO SCH ×3 (08:57→21:00)
[2018-09-07] MEDS: ISOSORBIDE DINITRATE 10 MG TABLET PO SCH ×3 (08:57→20:59)
[2018-09-07] MEDS: LISINOPRIL 20 MG TABLET PO SCH (08:57)
[2018-09-07] MEDS: INSULIN LISPRO 100 UNITS/ML, PEN SQ-INSULIN SCH ×4 (08:58→20:58)
[2018-09-07 13:19] VITALS: BP 136/72
[2018-09-07 19:33] VITALS: BP 101/53
[2018-09-07] MEDS: INSULIN GLARGINE 100 UNITS/ML, PEN SQ-INSULIN SCH (20:59)
[2018-09-07] MEDS: LOVASTATIN 20 MG TABLET PO SCH (21:00)
[2018-09-07] MEDS: TRAZODONE 50MG TABLET PO PRN (23:14)
[2018-09-08 02:59] VITALS: BP 103/52
[2018-09-08] MEDS: HEPARIN 5,000 UNITS/ML, 1ML SQ SCH ×2 (05:00→13:17)
[2018-09-08] MEDS: AMPICILLIN/SULBACTAM 1,500 MG in SODIUM CHLORIDE 0.9% 50 ML IV SCH ×2 (05:32→11:18)
[2018-09-08] MEDS: ASPIRIN 81 MG TABLET EC PO SCH (05:32)
[2018-09-08] MEDS: GABAPENTIN 300 MG CAPSULE PO SCH ×2 (05:32→11:18)
[2018-09-08] MEDS: OMEPRAZOLE 20 MG CAPSULE.DR PO SCH (05:38)
[2018-09-08] MEDS: INSULIN LISPRO 100 UNITS/ML, PEN SQ-INSULIN SCH ×2 (07:30→11:00)
[2018-09-08 07:39] VITALS: BP 110/59
[2018-09-08] MEDS: CYCLOBENZAPRINE 10 MG TABLET PO SCH (09:31)
[2018-09-08] MEDS: CARVEDILOL 6.25 MG TABLET PO SCH (09:31)
[2018-09-08] MEDS: ISOSORBIDE DINITRATE 10 MG TABLET PO SCH (09:31)
[2018-09-08] MEDS: ESCITALOPRAM 10MG TABLET PO SCH (09:31)
[2018-09-08] MEDS: SODIUM CHLORIDE FLUSH 10ML SYR IVF SCH (09:32)
[2018-09-08] MEDS: LISINOPRIL 20 MG TABLET PO SCH (09:32)
[2018-09-08] MEDS ORDERED: AMPI1.5V IVBOLUS (11:51)
[2018-09-08 13:53] VITALS: BP 114/63
[2018-09-08] MEDS ORDERED: INSULIN GLARGINE 100 UNITS/ML, PEN SQ-INSULIN SCH (21:00)
== END 2018-09-08 15:08 | DRG 638 ==
LOC: ED 12:38 → EDIP 16:25 → 4EST 17:36
PROVIDERS: ADMIT Hospitalist; ATTEND Hospitalist
DX: E11.69 Type 2 diabetes mellitus with other specified complication (principal); M86.171 Other acute osteomyelitis, right ankle and foot; E11.40 Type 2 diabetes mellitus with diabetic neuropathy, unspecified; E11.65 Type 2 diabetes mellitus with hyperglycemia; E78.5 Hyperlipidemia, unspecified; E87.5 Hyperkalemia; F10.10 Alcohol abuse, uncomplicated; F41.1 Generalized anxiety disorder; G89.4 Chronic pain syndrome; I10 Essential (primary) hypertension; K21.9 Gastro-esophageal reflux disease without esophagitis; R62.7 Adult failure to thrive; Z89.431 Acquired absence of right foot; Z79.4 Long term (current) use of insulin; Z91.14 Patient's other noncompliance with medication regimen; E66.9 Obesity, unspecified; Z68.26 Body mass index [BMI] 26.0-26.9, adult
CPT/HCPCS: 36415; 70450; 71045; 80048; 80053; 80307; 81003; 82140; 82962; 84484; 85025; 85651; 86140; 93005; 93306; 93922; 96372; 96374; 99285; G0378; J0295; J1644; J1815

== ENCOUNTER 2019-01-21 17:37 | Inpatient (IN) | payer MEDICARE ==
[~2019-01-21] VITALS: Ht 180.3 cm; Wt 98.0 kg
[2019-02-01 13:32] VITALS: BP 124/77
== END 2019-02-01 18:30 | disposition home or self-care (01) | DRG 207 ==
LOC: ED 18:23 → EDIP 20:07 → CCU 22:47 → 3NE 01-27 13:06
PROVIDERS: ADMIT Internal Medicine; ATTEND Internal Medicine
PROC: 5A1955Z Respiratory Ventilation, Greater than 96 Consecutive Hours (ICD-10-PCS; principal; 2019-01-21)
PROC: 0BH17EZ Insertion of Endotracheal Airway into Trachea, Via Natural or Artificial Opening (ICD-10-PCS; 2019-01-21)
PROC: 02HV33Z Insertion of Infusion Device into Superior Vena Cava, Percutaneous Approach (ICD-10-PCS; 2019-01-21)
PROC: B548ZZA Ultrasonography of Superior Vena Cava, Guidance (ICD-10-PCS; 2019-01-21)
PROC: 0T9B70Z Drainage of Bladder with Drainage Device, Via Natural or Artificial Opening (ICD-10-PCS; 2019-01-22)
DX: J96.01 Acute respiratory failure with hypoxia (principal); E11.10 Type 2 diabetes mellitus with ketoacidosis without coma; N17.0 Acute kidney failure with tubular necrosis; J69.0 Pneumonitis due to inhalation of food and vomit; G92 Toxic encephalopathy; E87.0 Hyperosmolality and hypernatremia; E87.1 Hypo-osmolality and hyponatremia; E87.3 Alkalosis; F23 Brief psychotic disorder; R45.851 Suicidal ideations; Z99.11 Dependence on respirator [ventilator] status; E11.40 Type 2 diabetes mellitus with diabetic neuropathy, unspecified; E66.9 Obesity, unspecified; Z68.30 Body mass index [BMI] 30.0-30.9, adult; E78.5 Hyperlipidemia, unspecified; E83.39 Other disorders of phosphorus metabolism; E83.51 Hypocalcemia; E87.5 Hyperkalemia; E87.6 Hypokalemia; F15.10 Other stimulant abuse, uncomplicated; F41.1 Generalized anxiety disorder; G89.4 Chronic pain syndrome; Z79.4 Long term (current) use of insulin; Z79.891 Long term (current) use of opiate analgesic; Z79.899 Other long term (current) drug therapy; M10.9 Gout, unspecified; Z87.891 Personal history of nicotine dependence; Z89.429 Acquired absence of other toe(s), unspecified side; Z91.14 Patient's other noncompliance with medication regimen; I11.9 Hypertensive heart disease without heart failure
CPT/HCPCS: 36415; 36600; 71045; 76770; 80048; 80053; 80069; 80307; 81001; 82010; 82040; 82550; 82570; 82803; 82962; 83036; 83605; 83735; 83935; 84100; 84156; 84300; 84478; 84484; 84550; 85025; 85610; 85730; 87040; 87070; 87081; 87205; 87324; 93005; 93306; 94002; 94003; 94640; 96365; 96372; 96375; 99292; G0378; J0295; J1644; J1815; J2250; J2704; J3010; J3411; J3486; J7070; J7620; 92523-GN; C9113; J0360; J2060; J3480; J7030; J7050; J7120